=== PATIENT | female | born 1955 | race African-American/Black ===

== ENCOUNTER 2018-02-27 10:48 | Emergency (ER) | payer MEDICARE, MEDICAID ==
[2018-02-27 11:43] LABS: Hemoglobin 12.3 g/dL (12.0-16.0); Mean Corpuscular HGB CONC 32.4 g/dL (32.0-36.0); Mean Corpuscular Hemoglobin 26.2 pg (27.0-31.0); Mean Platelet Volume 6.4 fL (7.4-10.4); Platelet Count 201 thou/uL (130-400); Red Blood Cell (RBC) Count 4.69 mill/uL (4.20-5.40); White Blood Cell (WBC) Count 13.5 thou/uL (4.8-10.8)
[2018-02-27 11:46] LABS: Bilirubin Negative (Negative); Blood, Urine Negative (Negative); Clarity CLEAR (Clear); Glucose, Urine (Dipstick) Negative (Negative); Leukocyte Small (Negative); Nitrite Negative (Negative); Protein, Urine (Dipstick) Negative (Neg-Trace); Specific Gravity, Urine 1.012 (1.002-1.036); Urobilinogen 0.2 mg/dL (0.2-1.0); pH, Urine 6.5 (5.0-9.0)
[2018-02-27 11:48] LABS: Bacteria/HPF None Seen HPF (None Seen); Hyaline Casts/LPF 0-3 HYALINE CAST LPF (0-3 Hyaline); Pathc Cast-AUWi Flag 0.72 (0-2.49); RBC/HPF 0-3 HPF (0-3); Squamous Epithelial 0-3 HPF (0-3); WBC/HPF 0-3 HPF (0-3)
[2018-02-27 12:02] LABS: ALT (SGPT) 15 U/L (8-55); AST (SGOT) 19 U/L (5-34); Albumin 3.8 g/dL (3.4-4.8); Alkaline Phosphatase 123 U/L (40-150); Anion Gap 11 mmol/L (10-20); BUN (Urea Nitrogen) 11 mg/dL (9.8-20.1); Bilirubin, Total 1.1 mg/dL (0.2-1.2); Calc. Creatinine Clearance 0 mL/min (70-130); Calcium 9.6 mg/dL (7.8-10.44); Carbon Dioxide 29 mmol/L (23-31); Chloride 97 mmol/L (98-107); Estimated GFR-MDRD 82; Globulin 3.7 g/dL (2.4-3.5); Glucose 135 mg/dL (80-115); Potassium 3.2 mmol/L (3.5-5.1); Protein, Total 7.5 g/dL (6.0-8.3); Sodium 134 mmol/L (136-145)
[2018-02-27 12:13] LABS: Band 4 % (5-11); Lymphocytes 14 % (21-51); Monocytes 4 % (0-10); Neutrophil 76 % (42-75); Reactive Lymphocytes 2 % (0-10)
[2018-02-27 12:15] LABS: PLT Morphology Comment Appears Adequate
[2018-02-27 12:16] LABS: MDiff Complete? YES
[2018-02-27] MEDS ORDERED: Ondansetron ODT 4 MG TAB ONE (13:15)
[2018-02-27] MEDS ORDERED: Potassium Chloride 20 MEQ TAB ONE (13:15)
[2018-02-27] MEDS ORDERED: Acetaminophen 500 MG TAB ONE (13:56)
--- NOTE | 2018-02-27 14:41 | RAD ---
PA AND LATERAL CHEST: Date: 02/27/18 HISTORY: Hypertension. Fever. FINDINGS: Heart size is slightly enlarged. Aorta is mildly tortuous. Lungs are clear of infiltrates. There are arthritic changes of the spine. IMPRESSION: Minimal cardiomegaly. POS: [facility]
== END 2018-02-27 15:57 | disposition home or self-care (01) ==
LOC: ERS 10:48
DX: E87.6 Hypokalemia (principal); K52.9 Noninfective gastroenteritis and colitis, unspecified; I10 Essential (primary) hypertension; J45.909 Unspecified asthma, uncomplicated; Z79.899 Other long term (current) drug therapy
CPT/HCPCS: 36415; 71046; 80053; 81003; 81015; 83605; 85025; 87040; 87804; Q0162

== ENCOUNTER 2018-09-16 08:23 | Emergency (ER) | payer MEDICARE, OTHER ==
[2018-09-16 09:21] LABS: Bilirubin Negative (Negative); Blood, Urine Negative (Negative); Clarity CLEAR (Clear); Glucose, Urine (Dipstick) Negative (Negative); Leukocyte Negative (Negative); Nitrite Negative (Negative); Protein, Urine (Dipstick) Negative (Neg-Trace); Urobilinogen 0.2 mg/dL (0.2-1.0); pH, Urine 6.5 (5.0-9.0)
[2018-09-16 09:22] LABS: #Basophils 0.1 thou/uL (0.0-0.2); #Eosinphils 0.1 thou/uL (0.0-0.7); #Lymphocytes 1.2 thou/uL (1.20-3.40); #Monocytes 0.3 thou/uL (0.11-0.59); #Neutrophils 2.1 thou/uL (1.40-6.50); %Basophils 1.5 % (0.0-1.0); %Eosinophils 1.4 % (0.0-10.0); %Lymphocytes 32.2 % (21.0-51.0); %Monocytes 7.3 % (0.0-10.0); %Neutrophils 57.6 % (42.0-75.0); Hemoglobin 12.7 g/dL (12.0-16.0); Mean Corpuscular HGB CONC 32.6 g/dL (32.0-36.0); Mean Corpuscular Hemoglobin 27.1 pg (27.0-31.0); Mean Corpuscular Volume 83.1 fL (78.0-98.0); Mean Platelet Volume 6.6 fL (7.4-10.4); Platelet Count 217 thou/uL (130-400); RBC Distribution Width 12.1 % (11.5-14.5); White Blood Cell (WBC) Count 3.7 thou/uL (4.8-10.8)
[2018-09-16 09:29] LABS: Specific Gravity, Urine 1.003 (1.002-1.036)
[2018-09-16 09:34] LABS: ALT (SGPT) 13 U/L (8-55); AST (SGOT) 21 U/L (5-34); Albumin 3.9 g/dL (3.4-4.8); Alkaline Phosphatase 102 U/L (40-150); Anion Gap 12 mmol/L (10-20); BUN (Urea Nitrogen) 14 mg/dL (9.8-20.1); Bilirubin, Total 0.4 mg/dL (0.2-1.2); CK (CPK) 175 U/L (29-168); Calc. Creatinine Clearance 0 mL/min (70-130); Calcium 9.1 mg/dL (7.8-10.44); Carbon Dioxide 27 mmol/L (23-31); Chloride 103 mmol/L (98-107); Estimated GFR-MDRD 85; Globulin 2.9 g/dL (2.4-3.5); Glucose 101 mg/dL (80-115); Potassium 4.1 mmol/L (3.5-5.1); Protein, Total 6.8 g/dL (6.0-8.3); Sodium 138 mmol/L (136-145)
[2018-09-16 09:38] LABS: CKMB 1.7 ng/mL (0-6.6); Troponin I Less than 0.010 ng/mL (< 0.028)
[2018-09-16] MEDS ORDERED: Ketorolac Tromethamine 30 MG/ML VIAL ONE (10:37)
--- NOTE | 2018-09-16 10:39 | RAD ---
PORTABLE CHEST: HISTORY: Chest pain and left arm and neck pain. COMPARISON: 07/26/2015 study. FINDINGS: Heart size is enlarged. Atherosclerotic changes of the aorta. The lungs are clear of infiltrates. There are no signs of failure. IMPRESSION: Cardiomegaly. POS: [facility]
== END 2018-09-16 10:58 | disposition home or self-care (01) ==
LOC: ERS 08:23
DX: M54.2 Cervicalgia (principal); M25.512 Pain in left shoulder; I10 Essential (primary) hypertension; J45.909 Unspecified asthma, uncomplicated; Z79.82 Long term (current) use of aspirin; Z79.899 Other long term (current) drug therapy
CPT/HCPCS: 36415; 71045; 80053; 81003; 82553; 84484; 85025; 93005; 96374; J1885

== ENCOUNTER 2019-02-05 10:14 | Emergency (ER) | payer MEDICARE, OTHER ==
--- NOTE | 2019-02-05 11:56 | RAD ---
LEFT ANKLE 3 VIEWS: Date: 02/05/19 HISTORY: Ankle pain. FINDINGS: There is soft tissue swelling at the ankle. No acute fracture. Enthesophytes from the plantar and pos terior calcaneus. Mild degenerative changes in the intertarsal joints. IMPRESSION: No acute fracture. POS: [facility]
== END 2019-02-05 12:06 | disposition home or self-care (01) ==
LOC: ERS 10:14
DX: L03.116 Cellulitis of left lower limb (principal); I10 Essential (primary) hypertension; J45.909 Unspecified asthma, uncomplicated; Z79.82 Long term (current) use of aspirin; Z79.899 Other long term (current) drug therapy

== ENCOUNTER 2020-01-29 09:14 | Outpatient (CLI) | payer MEDICARE, OTHER ==
--- NOTE | 2020-01-29 10:39 | BD ---
BONE DENSITOMETRY USING DEXA: Date: 01/29/2020 HISTORY: Postmenopausal screening for osteoporosis. FINDINGS: Lumbar Spine: BMD (g/cm2) L1 0.897 T-Score: -0.8 Z-Score: -0.1 L2 1.026 T-Score: 0.0 Z-Score: 0.8 L3 1.093 T-Score: 0.1 Z-Score: 1.0 L4 1.112 T-Score: 0.5 Z-Score: 1.4 L1-L4 1.042 T-Score: 0.0 Z-Score: 0.8 Femoral Neck: 0.793 T-Score: -0.5 Z-Score: 0.1 Total Femur: 1.098 T-Score: 1.3 Z-Score: 1.3 IMPRESSION: Normal bone mineral density. POS: [facility]
--- NOTE | 2020-01-30 16:34 | MMO ---
Bilateral MAMMO Bilat Screen [facility]. CLINICAL HISTORY: Patient is 64 years old and is seen for screening. The patient has the following family history of breast cancer: sister, at age 48. The patient has no personal history of cancer. VIEWS: The views performed were: bilateral craniocaudal; bilateral craniocaudal with tomosynthesis; bilateral mediolateral oblique; and bilateral mediolateral oblique with tomosynthesis. FILMS COMPARED: The present examination has been compared to prior imaging studies performed at [facility] on 12/06/2011, 01/16/2013 and 10/21/2015, and at [facility] on 06/30/2017. This study has been interpreted with the assistance of computer-aided detection. MAMMOGRAM FINDINGS: The breasts are almost entirely fat. Finding 1: Benign calcifications are noted bilaterally. Finding 2: There is a stable intramammary lymph node seen in the left breast. There are no suspicious masses, suspicious calcifications, or new areas of architectural distortion. IMPRESSION: THERE IS NO MAMMOGRAPHIC EVIDENCE OF MALIGNANCY. A ROUTINE FOLLOW-UP MAMMOGRAM IN 1 YEAR IS RECOMMENDED. THE RESULTS OF THIS EXAM WERE SENT TO THE PATIENT. ACR BI-RADS Category 2 - Benign finding MAMMOGRAPHY NOTE: 1. A negative mammogram report should not delay a biopsy if a dominant of clinically suspicious mass is present. 2. Approximately 10% to 15% of breast cancers are not detected by mammography. 3. Adenosis and dense breasts may obscure an underlying neoplasm. Reported by: LISA TOLBERT MD Electonically Signed: [id number]
== END 2020-01-29 09:15 | disposition home or self-care (01) ==
LOC: BICMAMMO 09:14
PROVIDERS: ATTEND Nurse Practitioner
DX: Z12.31 Encounter for screening mammogram for malignant neoplasm of breast (principal); Z13.820 Encounter for screening for osteoporosis; E55.9 Vitamin D deficiency, unspecified; Z80.3 Family history of malignant neoplasm of breast
CPT/HCPCS: 77063; 77067; 77080

== ENCOUNTER 2020-08-26 07:41 | Outpatient (CLI) | payer MEDICARE, MEDICAID ==
--- NOTE | 2020-08-26 08:56 | ULT ---
EXAM: US Abdominal CLINICAL HISTORY: Dysuria. COMPARISON: None. FINDINGS: Pancreas: Obscured by bowel gas IVC: Visualized IVC has a normal caliber. Aorta: Visualized aorta has a normal caliber. Liver:Increased echogenicity of the liver may be due to hepatic steatosis or hepatocellular disease. Limited evaluation for hepatic masses and intrahepatic biliary dilatation. The contour of the hepatic margin appears to be maintained. Gallbladder: No sonographic evidence of cholelithiasis, gallbladder wall thickening or pericholecysti c fluid. Parra's sign:Not commented upon CBD: 0.46 cm common bile duct diameter. Portal vein: Patent. Appropriate directional flow. Right kidney: Normal cortical echotexture. No hydronephrosis Right kidney measuring 9.9 x 3.9 x 4.0 cm in length. Left kidney: Normal cortical echotexture. No hydronephrosis. Left kidney measuring 5.0 x 11.0 x 5.5 cm in length. Spleen: Normal echotexture, measuring 10.2 cm in maximum dimension. IMPRESSION: 1. No sonographic evidence of cholelithiasis or cholecystitis. 2. Increased echogenicity of the liver which may be due to hepatic steatosis or hepatocellular diseas e. If there is concern for hepatic masses, abdomen MRI can be performed. Transcribed Date/Time: 08/26/2020 9:13 AM
--- NOTE | 2020-08-26 09:01 | ULT ---
Pelvic sonogram transabdominal and transvaginal imaging HISTORY: Pelvic pain. Dysuria. FINDINGS: Urinary bladder has normal appearance. Uterus is surgically absent. No free fluid in the pelvis. Neither ovary visualized with transabdominal or transvaginal imaging. No adnexal masses visible. IMPRESSION : Status post hysterectomy. No abnormalities are demonstrated.
--- NOTE | 2020-08-26 13:21 | MRI ---
EXAM: MRI of right knee PROVIDED CLINICAL HISTORY: Pain COMPARISON: None FINDINGS: The anterior cruciate ligament, posterior cruciate ligament, medial collateral ligament and lateral c ollateral ligamentous complex demonstrate an intact MR appearance, as does the extensor mechanism. There is maceration/nondisplaced degenerative tearing involving the body of the medial meniscus with a near full-thickness radial tear involving the posterior horn the medial meniscus as it approaches the meniscal root. There is complex degenerative tearing without displacement involving the body of t he lateral meniscus. There is tricompartmental articular cartilage irregularity with small foci of full-thickness articula r cartilage loss involving the lateral femoral condyle and median ridge of patella. There is advanced full-thickness articular cartilage loss involving the central weightbearing portions of the medial femorotibial joint. There is a small knee joint effusion. There is a small Pastrana's cyst. No focal concerning regional mar row or muscular signal abnormality apparent. IMPRESSION: 1. Medial and lateral meniscal tears as above. 2. Tricompartmental degenerative chondrosis, most conspicuously affecting the medial femorotibial laura nt. 3. Small knee joint effusion with small Pastrana's cyst.
== END 2020-08-26 07:42 | disposition home or self-care (01) ==
LOC: BICULT 07:41
PROVIDERS: ATTEND Nurse Practitioner Family
DX: M25.361 Other instability, right knee (principal); R30.0 Dysuria; S83.281A Other tear of lateral meniscus, current injury, right knee, initial encounter; S83.241A Other tear of medial meniscus, current injury, right knee, initial encounter; M71.21 Synovial cyst of popliteal space [Baker], right knee; M25.461 Effusion, right knee; Z90.710 Acquired absence of both cervix and uterus
CPT/HCPCS: 76856; 93975

== ENCOUNTER 2021-09-07 13:15 | Outpatient (CLI) | payer MEDICARE, MEDICAID ==
[~2021-09-07 13:15] MED LIST: Magnevist 469MG/ML 20 ML VIAL ONE
== END 2021-09-07 13:16 | disposition home or self-care (01) ==
LOC: BICMRI 13:15
PROVIDERS: ATTEND Nurse Practitioner Acute Care
DX: R51.9 Headache, unspecified (principal); R90.82 White matter disease, unspecified
CPT/HCPCS: 70544; 70553; 82565; A9579

== ENCOUNTER 2022-03-23 09:44 | Outpatient (CLI) | payer MEDICARE, MEDICAID | END 2022-03-23 09:45 | disposition home or self-care (01) | LOC: MRI 09:44 | PROVIDERS: ATTEND Specialist | DX: M51.17 Intervertebral disc disorders with radiculopathy, lumbosacral region (principal); M47.816 Spondylosis without myelopathy or radiculopathy, lumbar region | CPT/HCPCS: 72148 ==

== ENCOUNTER 2022-05-20 16:24 | Inpatient (IN) | payer OTHER, MEDICAID ==
[~2022-05-20 16:24] MED LIST changes: +ISOVUE-370 76%-LOCM 1 ML ONE; -Magnevist 469MG/ML 20 ML VIAL ONE
[2022-05-20 16:52] LABS: #Lymphocytes 1.2 thou/uL (1.20-3.40); #Monocytes 0.8 thou/uL (0.11-0.59); %Basophils 0.5 % (0.0-1.0); %Eosinophils 0.3 % (0.0-10.0); %Lymphocytes 14.5 % (21.0-51.0); %Monocytes 9.7 % (0.0-10.0); %Neutrophils 75.1 % (42.0-75.0); Hemoglobin 13.4 g/dL (12.0-16.0); Mean Corpuscular HGB CONC 33.1 g/dL (32.0-36.0); Mean Corpuscular Hemoglobin 27.3 pg (27.0-31.0); Mean Corpuscular Volume 82.7 fL (78.0-98.0); Mean Platelet Volume 7.4 fL (7.4-10.4); Platelet Count 191 thou/uL (130-400); RBC Distribution Width 12.4 % (11.5-14.5)
[2022-05-20] MEDS ORDERED: Acetaminophen 500 MG TAB ONE (17:10)
[2022-05-20 17:17] LABS: ALT (SGPT) 21 U/L (8-55); AST (SGOT) 37 U/L (5-34); Albumin 3.8 g/dL (3.4-4.8); Alkaline Phosphatase 141 U/L (40-110); Anion Gap 15 mmol/L (10-20); BUN (Urea Nitrogen) 13 mg/dL (9.8-20.1); Bilirubin, Total 0.8 mg/dL (0.2-1.2); Calc. Creatinine Clearance 0 mL/min (70-130); Calcium 9.8 mg/dL (7.8-10.44); Carbon Dioxide 29 mmol/L (23-31); Chloride 93 mmol/L (98-107); Estimated GFR 66; Globulin 4.4 g/dL (2.4-3.5); Glucose 167 mg/dL (80-115); Potassium 3.8 mmol/L (3.5-5.1); Protein, Total 8.2 g/dL (5.8-8.1); Sodium 133 mmol/L (136-145)
[2022-05-20 18:45] LABS: Bacteria/HPF 3+ HPF (None Seen); Bilirubin Negative (Negative); Blood, Urine Trace (Negative); Clarity Turbid (Clear); Glucose, Urine (Dipstick) Normal (Negative); Ketone, Urine Negative (Negative); Leukocyte 250 Leu/uL (Negative); Nitrite Negative (Negative); Protein, Urine (Dipstick) 20 mg/dL (Neg-Trace); Squamous Epithelial 0-3 HPF (0-3); Urobilinogen 3 mg/dL (Less than 2)
[2022-05-20 18:47] LABS: Specific Gravity, Urine 1.044 (1.002-1.036)
[2022-05-20 20:12] LABS: SARS-CoV-2 NAA Rapid Test Not Detected (NotDetected)
[2022-05-20] MEDS ORDERED: Ondansetron PF 4 MG/2 ML Vial IVP PRN (21:23)
[2022-05-20] MEDS ORDERED: Dextrose 5% in Water 1,000 ML IV PRN (21:23)
[2022-05-20] MEDS ORDERED: HumaLOG 300 UNITS/3 ML VIAL SC PRN ×2 (21:23)
[2022-05-20] MEDS ORDERED: Acetaminophen 650 MG Suppository PR PRN (21:23)
[2022-05-20] MEDS ORDERED: Dextrose 50% Abboject 50 ML SYRINGE SLOW IVP PRN (21:23)
[2022-05-20] MEDS ORDERED: Ondansetron ODT 4 MG TAB PO PRN (21:23)
[2022-05-20 22:27] VITALS: BMI 42.5
[2022-05-20] MEDS: Sodium Chloride 0.9% 1,000 ML IV SCH (22:31)
[2022-05-21] MEDS: Acetaminophen 325 MG TAB PO PRN ×2 (01:57→08:24)
[2022-05-21 07:29] LABS: Anion Gap 12 mmol/L (10-20); BUN (Urea Nitrogen) 11 mg/dL (9.8-20.1); Calc. Creatinine Clearance 125 mL/min (70-130); Calcium 8.9 mg/dL (7.8-10.44); Carbon Dioxide 28 mmol/L (23-31); Chloride 101 mmol/L (98-107); Estimated GFR 82; Glucose 116 mg/dL (80-115); Potassium 3.7 mmol/L (3.5-5.1); Sodium 137 mmol/L (136-145)
[2022-05-21 07:39] LABS: Band 15 % (5-11); Eosinophils 1 % (0-10); Hemoglobin 11.3 g/dL (12.0-16.0); Lymphocytes 16 % (21-51); MDiff Complete? YES; Mean Corpuscular Hemoglobin 27.7 pg (27.0-31.0); Mean Corpuscular Volume 83.8 fL (78.0-98.0); Mean Platelet Volume 6.9 fL (7.4-10.4); Monocytes 12 % (0-10); Neutrophil 53 % (42-75); Platelet Count 160 thou/uL (130-400); Platelet Morphology Comment Appears Adequate; RBC Distribution Width 12.2 % (11.5-14.5); RBC Morphology Normal; Reactive Lymphocytes 3 % (0-10); Red Blood Cell (RBC) Count 4.07 mill/uL (4.20-5.40); White Blood Cell (WBC) Count 6.6 thou/uL (4.8-10.8)
[2022-05-21] MEDS: Sodium Chloride 0.9% 1,000 ML IV SCH ×3 (08:28→21:12)
[2022-05-21] MEDS ORDERED: Iopamidol-370 76% 500 ML 1 ML ONE (15:26)
[2022-05-21] MEDS ORDERED: Azithromycin 500 MG in Sodium Chloride 0.9% 250 ML 250 ML IVPB SCH (18:00)
[2022-05-22] MEDS: Sodium Chloride 0.9% 1,000 ML IV SCH ×2 (05:46→20:06)
[2022-05-22] MEDS: Acetaminophen 325 MG TAB PO PRN ×2 (05:47→18:42)
[2022-05-22 07:27] LABS: Hemoglobin 10.5 g/dL (12.0-16.0); Mean Corpuscular HGB CONC 32.6 g/dL (32.0-36.0); Mean Corpuscular Hemoglobin 27.3 pg (27.0-31.0); Mean Corpuscular Volume 83.8 fL (78.0-98.0); Mean Platelet Volume 7.3 fL (7.4-10.4); Platelet Count 160 thou/uL (130-400); RBC Distribution Width 12.4 % (11.5-14.5); Red Blood Cell (RBC) Count 3.83 mill/uL (4.20-5.40); White Blood Cell (WBC) Count 5.8 thou/uL (4.8-10.8)
[2022-05-22 07:42] LABS: Protein, Total 6.1 g/dL (5.8-8.1)
[2022-05-22 07:43] LABS: ALT (SGPT) 25 U/L (8-55); AST (SGOT) 48 U/L (5-34); Albumin 2.8 g/dL (3.4-4.8); Alkaline Phosphatase 112 U/L (40-110); Anion Gap 14 mmol/L (10-20); BUN (Urea Nitrogen) 10 mg/dL (9.8-20.1); Bilirubin, Total 0.3 mg/dL (0.2-1.2); Calc. Creatinine Clearance 135 mL/min (70-130); Calcium 8.7 mg/dL (7.8-10.44); Carbon Dioxide 25 mmol/L (23-31); Chloride 102 mmol/L (98-107); Estimated GFR 90; Globulin 3.3 g/dL (2.4-3.5); Glucose 109 mg/dL (80-115); Potassium 3.7 mmol/L (3.5-5.1); Sodium 137 mmol/L (136-145)
[2022-05-22 08:58] LABS: Band 16 % (5-11); Eosinophils 1 % (0-10); Lymphocytes 20 % (21-51); MDiff Complete? YES; Monocytes 13 % (0-10); Neutrophil 50 % (42-75); Platelet Morphology Comment Appears Adequate; RBC Morphology Normal
[2022-05-23] MEDS: Acetaminophen 325 MG TAB PO PRN (04:53)
[2022-05-23 07:12] LABS: #Eosinphils 0.1 thou/uL (0.0-0.7); #Lymphocytes 1.3 thou/uL (1.20-3.40); #Monocytes 0.6 thou/uL (0.11-0.59); #Neutrophils 3.9 thou/uL (1.40-6.50); %Basophils 0.2 % (0.0-1.0); %Eosinophils 2.2 % (0.0-10.0); %Lymphocytes 21.3 % (21.0-51.0); %Monocytes 10.2 % (0.0-10.0); %Neutrophils 66.1 % (42.0-75.0); Hemoglobin 10.2 g/dL (12.0-16.0); Mean Corpuscular HGB CONC 33.2 g/dL (32.0-36.0); Mean Corpuscular Hemoglobin 27.7 pg (27.0-31.0); Mean Corpuscular Volume 83.3 fL (78.0-98.0); Mean Platelet Volume 7.2 fL (7.4-10.4); Platelet Count 167 thou/uL (130-400); RBC Distribution Width 12.2 % (11.5-14.5); Red Blood Cell (RBC) Count 3.69 mill/uL (4.20-5.40); White Blood Cell (WBC) Count 5.9 thou/uL (4.8-10.8)
[2022-05-23 07:16] LABS: ALT (SGPT) 26 U/L (8-55); AST (SGOT) 39 U/L (5-34); Albumin 2.7 g/dL (3.4-4.8); Alkaline Phosphatase 109 U/L (40-110); Anion Gap 13 mmol/L (10-20); BUN (Urea Nitrogen) 7 mg/dL (9.8-20.1); Bilirubin, Total 0.4 mg/dL (0.2-1.2); Calc. Creatinine Clearance 144 mL/min (70-130); Calcium 8.6 mg/dL (7.8-10.44); Carbon Dioxide 25 mmol/L (23-31); Chloride 105 mmol/L (98-107); Estimated GFR 96; Globulin 3.1 g/dL (2.4-3.5); Glucose 99 mg/dL (80-115); Potassium 3.8 mmol/L (3.5-5.1); Protein, Total 5.8 g/dL (5.8-8.1); Sodium 139 mmol/L (136-145)
[2022-05-23] MEDS: Sodium Chloride 0.9% 1,000 ML IV SCH (12:49)
[2022-05-23 16:01] VITALS: BP 135/81; TEMP 98.3
== END 2022-05-23 16:20 | disposition home health service (06) | DRG 871 ==
LOC: ERS 16:24 → T4-B 22:19 → OBSVTOIN 05-23 12:08
PROVIDERS: ADMIT Family Medicine; ATTEND Family Medicine
DX: A40.3 Sepsis due to Streptococcus pneumoniae (principal); J18.9 Pneumonia, unspecified organism; R65.20 Severe sepsis without septic shock; J96.01 Acute respiratory failure with hypoxia; N39.0 Urinary tract infection, site not specified; E87.1 Hypo-osmolality and hyponatremia; Z68.41 Body mass index [BMI] 40.0-44.9, adult; Z20.822 Contact with and (suspected) exposure to COVID-19; I10 Essential (primary) hypertension; J45.909 Unspecified asthma, uncomplicated; E66.01 Morbid (severe) obesity due to excess calories; E11.69 Type 2 diabetes mellitus with other specified complication; Z88.0 Allergy status to penicillin; Z88.2 Allergy status to sulfonamides; Z90.710 Acquired absence of both cervix and uterus
CPT/HCPCS: 36415; 36416; 71045; 71260; 74177; 80048; 80053; 81003; 81015; 83036; 83605; 85025; 87040; 87086; 93005; 96376; G0378; J1956; J7050; Q0162; Q9966; Q9967; U0002

== ENCOUNTER 2022-09-28 14:11 | Outpatient (CLI) | payer OTHER, MEDICARE | END 2022-09-28 14:12 | disposition home or self-care (01) | LOC: RAD-FRANK 14:11 | PROVIDERS: ATTEND Nurse Practitioner Family | DX: R07.9 Chest pain, unspecified (principal) | CPT/HCPCS: 71046 ==

== ENCOUNTER 2023-06-12 09:53 | Outpatient (CLI) | payer OTHER | END 2023-06-12 09:54 | disposition home or self-care (01) | LOC: RAD-FRANK 09:53 | PROVIDERS: ATTEND Nurse Practitioner Family | DX: M25.571 Pain in right ankle and joints of right foot (principal) ==

== ENCOUNTER 2024-05-27 11:14 | Emergency (ER) | payer OTHER, MEDICAID ==
[2024-05-27 11:42] LABS: #Basophils Less than 0.03 10x3/uL (0.0-0.2); %Basophils 0.5 % (0.0-1.0); %Eosinophils 4.7 % (0.0-10.0); %Lymphocytes 53.6 % (21.0-51.0); %Monocytes 7.7 % (0.0-10.0); %Neutrophils 33.5 % (42.0-75.0); Hematocrit 37.7 % (36.0-47.0); Hemoglobin 12.4 g/dL (12.0-16.0); Mean Corpuscular HGB CONC 32.9 g/dL (32.0-36.0); Mean Corpuscular Hemoglobin 26.1 pg (27.0-31.0); Mean Corpuscular Volume 79.4 fL (78.0-98.0); Mean Platelet Volume 8.9 fL (7.4-10.4); Platelet Count 204 10x3/uL (130-400); RBC Distribution Width 13.2 % (11.5-14.5); Red Blood Cell (RBC) Count 4.75 mill/uL (4.20-5.40)
[2024-05-27 12:10] LABS: ALT (SGPT) 11 U/L (8-55); AST (SGOT) 16 U/L (5-34); Albumin 3.5 g/dL (3.4-4.8); Alkaline Phosphatase 103 U/L (40-110); Anion Gap 11 mmol/L (10-20); BUN (Urea Nitrogen) 13 mg/dL (9.8-20.1); Bilirubin, Total 0.4 mg/dL (0.2-1.2); Calc. Creatinine Clearance 0 mL/min (70-130); Calcium 9.6 mg/dL (7.8-10.44); Carbon Dioxide 28 mmol/L (23-31); Chloride 103 mmol/L (98-107); Estimated GFR 84; Globulin 3.3 g/dL (2.4-3.5); Glucose 87 mg/dL (80-115); Protein, Total 6.8 g/dL (5.8-8.1); Sodium 138 mmol/L (136-145)
[2024-05-27 12:23] LABS: Bilirubin Negative (Negative); Blood, Urine Negative (Negative); CAUTI Indications for Culture Dysuria,urgency,freq; Clarity Clear (Clear); Glucose, Urine (Dipstick) Normal (Negative); Ketone, Urine Negative (Negative); Leukocyte 500 Leu/uL (Negative); Nitrite Negative (Negative); Protein, Urine (Dipstick) Negative (Neg-Trace); RBC/HPF 0-3 HPF (0-3); Specific Gravity, Urine 1.003 (1.002-1.036); Squamous Epithelial 0-3 HPF (0-3); Urobilinogen Normal mg/dL (Less than 2); WBC/HPF 21-50 HPF (0-3)
[2024-05-27 12:47] LABS: Bacteria/HPF Rare-Few HPF (None Seen)
[2024-05-27 12:49] LABS: Urine Culture Reflex Yes Yes
== END 2024-05-27 13:12 | disposition home or self-care (01) ==
LOC: ERS 11:14
DX: N39.0 Urinary tract infection, site not specified (principal); E11.9 Type 2 diabetes mellitus without complications; I10 Essential (primary) hypertension
CPT/HCPCS: 36415; 80053; 81001; 85025; 87086; 99283

== ENCOUNTER 2025-07-22 11:20 | Outpatient (CLI) | payer OTHER | END 2025-07-22 11:21 | disposition home or self-care (01) | LOC: BICMAMMO 11:20 | PROVIDERS: ATTEND Nurse Practitioner Family | DX: Z12.31 Encounter for screening mammogram for malignant neoplasm of breast (principal); Z80.3 Family history of malignant neoplasm of breast | CPT/HCPCS: 77063; 77067 ==

== ENCOUNTER 2025-09-05 12:43 | Emergency (ER) | payer OTHER ==
[2025-09-05] MEDS ORDERED: Ketorolac Tromethamine 30 MG (1 mL) VIAL ONE (13:30)
[2025-09-05 14:11] LABS: Bacteria/HPF None Seen HPF (None Seen); CAUTI Indications for Culture Immunosuppressed; Glucose, Urine (Dipstick) Normal (Negative); Leukocyte Negative Leu/uL (Negative); Protein, Urine (Dipstick) Negative (Neg-Trace); RBC/HPF None Seen HPF (0-3); Specific Gravity, Urine 1.004 (1.002-1.036); WBC/HPF 0-3 HPF (0-3)
[2025-09-05 14:18] LABS: Urine Culture Reflex Yes Yes
== END 2025-09-05 15:03 | disposition home or self-care (01) ==
LOC: ERS 12:43
DX: M54.42 Lumbago with sciatica, left side (principal); I10 Essential (primary) hypertension; E11.9 Type 2 diabetes mellitus without complications; E66.9 Obesity, unspecified; Z68.38 Body mass index [BMI] 38.0-38.9, adult
CPT/HCPCS: 81001; 87086; 96372; 99283; J1885

== ENCOUNTER 2025-10-13 10:58 | Outpatient (CLI) | payer OTHER | END 2025-10-13 10:59 | disposition home or self-care (01) | LOC: ULT 10:58 | PROVIDERS: ATTEND Internal Medicine Nephrology | DX: I12.9 Hypertensive chronic kidney disease with stage 1 through stage 4 chronic kidney disease, or unspecified chronic kidney disease (principal); N18.2 Chronic kidney disease, stage 2 (mild) | CPT/HCPCS: 76770; 93975 ==